=== PATIENT | female | born 1980 | race Caucasian/White ===

== ENCOUNTER → 2016-06-09 | Outpatient (CLI) | payer OTHER ==
[2014-05-23 13:08] VITALS: BP 129/68
[~2016-06-09] MED LIST: CYCL10TA2 PO; GADOBUTROL 10 MMOL/10 ML VIAL IV ONE; HYDR1TAB12 PO; IBUP-1060 PO; PHEN37.53 PO
--- NOTE | 2016-06-09 13:25 | KCIC ---
PROCEDURE MRI of the cervical spine without and with contrast 06/09/2016 HISTORY Left arm numbness with new numbness across the region of both scapula. History of previous cervical spine surgery. TECHNIQUE Unenhanced T1 weighted, T2 weighted and inversion recovery sagittal and gradient echo, T2 weighted and T1 weighted axial images of the cervical spine were obtained. After the intravenous administration of 10 cc of Gadavist, enhanced T1 weighted sagittal and axial images of the cervical spine were obtained. FINDINGS Comparison study is dated 12/22/2015. Magnetic susceptibility artifact related to cervical disc replacement surgery is seen at C5-6. Degenerative signal changes and loss of height are seen involving the C4-5 and C6-7 discs. The marrow signal of the visualized bony structures is within normal limits. The cervical spinal cord is normal in position and signal characteristics. No area of abnormal contrast enhancement is seen. At the C2-3 and C3-4 disc spaces there are minimal to mild generalized disc bulges. Degenerative changes are seen involving the uncovertebral and facet joints. These findings do not result in significant central spinal canal or neural foraminal stenosis. At the C4-5 disc space there is a mild generalized disc bulge. Degenerative changes are seen involving the uncovertebral and facet joints bilaterally. These findings do not result in significant central spinal canal or neural foraminal stenosis. The C5-6 disc space is very difficult to evaluate due to magnetic susceptibility artifact related to the patient's disc replacement. Posterior vertebral body osteophyte formation is seen. Degenerative changes are seen involving the uncovertebral and facet joints, right greater than left. These findings appear to efface the anterior CSF resulting in mild right greater than left central spinal canal stenosis without significant cord impingement. No neural foraminal stenosis is seen. At the C6-7 disc space there is a mild generalized disc bulge. Degenerative changes are seen involving the uncovertebral and facet joints, right greater than left. These findings do not result in significant central spinal canal or neural foraminal stenosis. At the C7-T1 disc space there is a minimal generalized disc bulge. Degenerative changes are seen involving the facet joints bilaterally. These findings do not result in significant central spinal canal or neural foraminal stenosis. IMPRESSION 1. The patient is status post cervical disc replacement at C5-6. Magnetic susceptibility artifact at this level limits evaluation of C5-6 as outlined above. 2. Degenerative changes are seen involving the cervical spine. These findings appear to result in mild right greater than left central spinal canal stenosis at C5-6 without significant cord impingement. No neural foraminal stenosis is seen. Electronically signed by: Roddy Hayes MD (Jun 09, 2016 13:23:57)
== END | disposition home or self-care (01) ==
LOC: KCIC MRI 10:58
PROVIDERS: ATTEND Neurological Surgery
DX: M50.20 Other cervical disc displacement, unspecified cervical region (principal)
CPT/HCPCS: 72156; A9585

== ENCOUNTER → 2017-03-23 | Outpatient (CLI) | payer OTHER ==
[2014-05-23 13:08] VITALS: BP 129/68
[~2017-03-23] MED LIST changes: -GADOBUTROL 10 MMOL/10 ML VIAL IV ONE
[2017-03-26 22:10] LABS: HSV 1&2 IGM <0.91 Ratio (0.00-0.90)
== END | disposition home or self-care (01) ==
LOC: LAB 11:11
PROVIDERS: ATTEND Family Medicine
DX: B00.9 Herpesviral infection, unspecified (principal)
CPT/HCPCS: 36415; 87529

== ENCOUNTER → 2017-12-12 | Outpatient (CLI) | payer OTHER ==
[2014-05-23 13:08] VITALS: BP 129/68
--- NOTE | 2017-12-12 13:19 | KCIC ---
EXAM: Maxillofacial bone CT without contrast. HISTORY: Sinusitis. TECHNIQUE: Computed tomographic images of the maxillofacial bones were obtained without contrast. *One or more of the following individualized dose reduction techniques were utilized for this examination: 1. Automated exposure control. 2. Adjustment of the mA and/or kV according to patient size. 3. Use of iterative reconstruction technique. COMPARISON: None. FINDINGS: There is severe bilateral ethmoid and maxillary, moderate right sphenoid and mild bilateral frontal sinus mucosal thickening. There is paranasal sinus wall thickening due to the sequela of chronic sinusitis. There are bilateral antrostomy/uncinectomy changes. There is rightward nasal septal deviation. The orbits are unremarkable. No suspicious calvarial lesion is seen. The brain is unremarkable. The mastoid air cells are clear. IMPRESSION: 1. Chronic severe ethmoid and maxillary, moderate sphenoid and mild frontal sinus disease with associated sinus wall thickening. 2. Bilateral antrostomy/uncinectomy changes. Electronically signed by: Silvia Steiner MD (12/12/2017 1:16 PM) [place] [id number]
== END | disposition home or self-care (01) ==
LOC: KCIC CT 12:35
PROVIDERS: ATTEND Otolaryngology
DX: J32.4 Chronic pansinusitis (principal); J34.2 Deviated nasal septum; K21.9 Gastro-esophageal reflux disease without esophagitis
CPT/HCPCS: 70486

== ENCOUNTER 2018-02-07 10:33 | Day surgery (SDC) | payer OTHER ==
[~2018-02-07] VITALS: Ht 172.7 cm; Wt 104.3 kg
[~2018-02-07 10:33] MED LIST changes: +EPINEPHrine VIAL 30 MG/30 ML VIAL ONE; +LIDOCAINE 1% PF 2 ML VIAL. ID PRN; +LIDOCAINE 1%/EPI 1:100,000 20 ML VIAL. ONE; +LIDOCAINE 2% PF Vial for OR 5 ML VIAL. ONE; +MUPIROCIN 2 % NASAL OINTMENT 22GM TUBE. ONE; +ONDANSETRON PF 4 MG/2 ML VIAL. IV PRN; +OXYMETAZOLINE 0.05% NASAL SPRAY 30ML BOTTLE. NS ONE; +PHENYLEPHRINE 0.25% NASAL SPRAY 15ML BOTTLE. NS ONE; +PROCHLORPERAZINE 10 MG/2 ML VIAL. IV PRN; +PROPOFOL 20 ML IV ONE; +ROCURONIUM 50 MG/5 ML VIAL. ONE; +SUCCINYLCHOLINE 200 MG/10 ML VIAL. ONE; +fentaNYL PF VIAL 100 MCG/2 ML VIAL IV PRN; +fentaNYL PF VIAL 100 MCG/2 ML VIAL ONE
[2018-02-07] MEDS ORDERED: CETI10TA22 PO (10:53)
[2018-02-07] MEDS ORDERED: FLUT9.9S NS (10:53)
[2018-02-07] MEDS ORDERED: SCOPOLAMINE 1.5MG PATCH. TD ONE (11:15)
[2018-02-07] MEDS: IV RINGERS,LACTATED 1000ML 1,000 ML IV SCH ×2 (11:22→14:35)
[2018-02-07 11:23] LABS: U PREG PATIENT NEGATIVE (NEG)
[2018-02-07] MEDS ORDERED: CLINDAMYCIN 900MG PREMIX 50 ML IV ONE (11:31)
[2018-02-07] MEDS ORDERED: DESFLURANE > 120 MINUTES IH ONE (12:11)
[2018-02-07] MEDS ORDERED: FAMOTIDINE 20 MG/2 ML VIAL ONE ×2 (12:11→12:45)
[2018-02-07] MEDS ORDERED: DEXAMETHASONE SOD PHOS 20 MG/5 ML VIAL. ONE (12:11)
[2018-02-07] MEDS ORDERED: ONDANSETRON PF 4 MG/2 ML VIAL. ONE (12:45)
[2018-02-07] MEDS ORDERED: diphenhydrAMINE 50 MG/ML VIAL ONE (12:46)
[2018-02-07] MEDS: fentaNYL PF VIAL 100 MCG/2 ML VIAL IV PRN ×2 (14:34→14:51)
[2018-02-07] MEDS ORDERED: oxyCODONE/APAP 5/325 1 TAB TABLET ONE (15:07)
--- NOTE | 2018-02-07 15:09 | PDOC4 ---
IMMEDIATE POST OP NOTE Date: Feb 07, 2018 Pre-Op Diagnosis nasal polyposis, chronic pansinusitis, bilateral inferior turbinate hypertrophy Post-Op Diagnosis Same As Above Procedure Performed bilateral revision functional endoscopic sinus surgery under image guidance navigation to include bilateral medial maxillary antrostomy, bilateral total ethmoidectomy, bilateral sphenoidotomy, bilateral frontal sinusotomy; bilateral inferior turbinoplasty Surgeon Dr. Sonja Beyer Income Tax Return Preparer none Anesthesiologist Dr. Frances Anesthesia Type: General Blood Loss 100mL Specimens Obtained right ethmoid contents culture, left nasal cavity polyps, left frontal polyps, right ethmoid contents Findings 1. Nasal septum is straight 2. Bilateral inferior turbinate hypertrophy 3. Severe purulent discharge, mucoid discharge filling bilateral ethmoid, sphenoid, frontal sinuses with surrounding severe polypoid inflammation 4. Evidence of previous surgery. Both maxillary antrostomies still very narrow. Residual suprabullar ethmoid air cell along skull base narrowing frontal outflow tracts. Right sphenoid sinus not previously opened. Complications none Operative Note Dictation #[id number] SONJA BEYER MD Feb 07, 2018 15:09
[2018-02-07] MEDS ORDERED: oxyCODONE/APAP 5/325 1 TAB TABLET PO ONE (15:15)
[2018-02-07] MEDS ORDERED: OXYC-323 PO (15:15)
[2018-02-07] MEDS ORDERED: PRED20TA PO (15:16)
[2018-02-07] MEDS ORDERED: CLAR500T PO (15:17)
[2018-02-07] MEDS ORDERED: ONDA4TAB7 PO (15:18)
[2018-02-07 15:30] VITALS: BP 113/75
--- NOTE | 2018-02-07 18:32 | OP ---
DATE OF SURGERY: 02/07/2018 PREOPERATIVE DIAGNOSES: Nasal polyposis, chronic pansinusitis and bilateral inferior turbinate hypertrophy. POSTOPERATIVE DIAGNOSES: Nasal polyposis, chronic pansinusitis and bilateral inferior turbinate hypertrophy. PROCEDURE PERFORMED: Bilateral revision functional endoscopic sinus surgery under image guidance navigation to include bilateral medial maxillary antrostomy, bilateral total ethmoidectomy, bilateral sphenoidotomy, bilateral frontal sinusotomy and bilateral inferior turbinoplasty. SURGEON: Sonja Beyer MD ANESTHESIA: General endotracheal anesthesia. ANESTHESIOLOGIST: Noah Frances MD. ESTIMATED BLOOD LOSS: 100 mL. INDICATIONS FOR SURGERY: The patient is a 37-year-old female with a history of chronic pansinusitis and nasal polyposis. The patient has undergone previous sinus surgery several years ago and has had continued recurrent disease that is refractory to medical management. The decision was made the patient to undergo the above procedure after risks, benefits, and alternatives of surgery were thoroughly discussed with the patient and informed consent was obtained. INTRAOPERATIVE SPECIMENS OBTAINED: Right ethmoid sinus contents were sent for culture. For pathology, we sent left nasal cavity polyps, left frontal sinus polyps and right ethmoid contents. INTRAOPERATIVE FINDINGS: 1. Nasal septum was found to be relatively straight. 2. Bilateral inferior turbinate hypertrophy. 3. Severe polypoid inflammation filling the ethmoid, frontal and sphenoid sinuses and partially filling the maxillary antrostomy. There was thick purulent and mucoid discharge also surrounding the polyps, especially noted almost eosinophilic mucin present within the right ethmoid region that was cultured. 4. Evidence of previous sinus surgery. The patient had previous evidence of maxillary antrostomies, although these were narrowed now. There was also evidence of previous ethmoidectomy, but there was residual suprabullar ethmoid air cells along the skull base that was narrowing the frontal outflow tracts bilaterally and the right sphenoid sinus had not been previously operated or opened. DESCRIPTION OF THE PROCEDURE: The patient was brought back to the room per anesthesia and intubated in the standard fashion. The patient was then turned 90 degrees in the room. Her nasal vestibular hairs were trimmed and a submucosal injection of 1% lidocaine with 1:100,000 epinephrine was placed along the anterior septum and Afrin-soaked pledgets were inserted in the nasal cavity. The patient was then prepped and draped in standard fashion. The Medisse image guidance system was set up and verified for accuracy. This was used throughout the case to ensure complete dissection and to ensure patient safety. The Afrin-soaked pledgets were then removed. A 0-degree scope was used to visualize the patient's left nasal cavity. The patient was found to have evidence of severe polypoid inflammation emanating from the middle meatus on this side. The septum was not deviated enough to require a septoplasty. I injected the attachment of the middle turbinate at the lateral nasal wall with 1% lidocaine with 1:100,000 epinephrine. I then used a Blakesley forceps to take a biopsy of the polyps. The microdebrider was then used to further excise the polyps from the middle meatus and the ethmoid sinuses that had been previously operated on. I continued my dissection posteriorly removing a significant amount of polypoid inflammation from the ethmoid sinuses and traveling posteriorly to the sphenoid sinus, which had also been previously opened. There was severe polypoid inflammation filling all of the sinuses and I ensured my complete dissection removing the excess mucosa superiorly to the skull base and laterally to the lamina papyracea. Using a 30-degree scope, I then visualized the previous maxillary antrostomy. This had been severely narrowed and the backbiter forceps were used anteriorly and along the floor of the maxillary antrostomy to widen this maxillary antrostomy widely. I also then used the 30-degree scope to visualize the frontal sinus outflow tract. There was significant polypoid inflammation emanating from the frontal sinus outflow tract. The microdebrider was used to widen this. There was a suprabullar ethmoid air cell posteriorly present and this was resected using a curved Ajax forceps to widen the frontal sinus outflow tract. Severe polyp inflammation was emanating from the frontal sinus outflow tract and this was biopsied using giraffe forceps. I then used normal saline in a 60 mL syringe to do a powered irrigation of the frontal sinus outflow tract as there was thick mucoid discharge filling this region. I did multiple powered irrigations of the frontal sinus, the ethmoid sinuses, sphenoid sinus and maxillary sinus on this side and this was thoroughly irrigated until there was no evidence of infection present. Topical epinephrine was then placed for several minutes for hemostasis. Propel contour implant was placed within the frontal sinus outflow tract and the Propel standard implant was placed within the posterior ethmoid air cells to help postoperative polyp recurrence from happening. My attention was then taken to the right nasal cavity. In a similar fashion, I used a 0 degree scope to visualize the nasal cavity. The patient had evidence of previous resection of the anterior aspect of the middle turbinate and I injected the lateral nasal wall with 1% lidocaine with 1:100,000 epinephrine. The middle meatus had thick purulent discharge as well as polypoid inflammation and I took a culture of this thick purulent discharge for culture later in the case. The microdebrider was then used to completely excise the purulent discharge and crusting as well as to start reexcising the polyps that were filling the anterior ethmoid air cells. I continued my dissection posteriorly through the ethmoid air cells as well until I came to the face of the sphenoid. At the face of sphenoid, it was noted on image guidance that this had not been previously opened. I found the attachment in the inferior aspect of the middle turbinate, it had been resected previously. I immediately identified the natural outflow tract of the sphenoid sinus. I used suction to enter into the sphenoid ostia. I then used a sphenoid punch to widen the sphenoid ostia followed by Ajax forceps to further widen the sphenoid ostia superiorly to the skull base and laterally to the lamina papyracea. I then used the microdebrider to trim the mucosa and the polypoid mucosa that was filling the sphenoid sinus as well as the ethmoid air cells along the skull base. I then used a 30-degree scope to visualize the frontal sinus outflow tract, which was also continued to have a significant polypoid inflammation. The polyps were debrided conservatively using the microdebrider. There was again noted to be a suprabullar ethmoid air cell that was narrowing the frontal sinus outflow tract from its posterior aspect. This was resected using sharp dissection until the frontal sinus outflow tract was widely patent. Again, I used 30-degree scope to visualize the maxillary antrostomy. This has also been narrowed from a previous surgery and was widened using backbiter forceps. I then again did a powered irrigation of the frontal, ethmoid, sphenoid and maxillary antrostomies using normal saline until there was no evidence of residual infection of this area. Topical epinephrine was placed for several minutes for hemostasis. Propel contour implant was placed within the frontal sinus outflow tract and a Propel standard implant was placed within the posterior ethmoid air cell. I then performed a bilateral inferior turbinoplasty being on the left side. I used the microdebrider to cut into the anterior aspect of the inferior turbinate and performed a submucosal resection along the anterior and inferior turbinate mucosa. I then trimmed the excess mucosa along the entire length of the inferior turbinate along its lateral and inferior border as well as resecting the posterior mulberry tissue. Suction [place]ora was used to elevate the residual mucosa of the most inferior portion of the turbinate bone and I did a very conservative resection of the most inferior portion of the turbinate bone using Aman-Cut forceps. The residual mucosa was then trimmed and redraped the residual turbinate bone. The residual turbinate bone was outfractured. Suction Bovie electrocautery was used posteriorly along the incision line anterior for hemostasis. After this was completed, the nasal airway was widely patent. An identical procedure was done on the left side and again until bilateral nasal cavity was widely patent. A piece of silicone sheeting was placed along the anterior septum extending posterior between the middle turbinate and lateral nasal wall. It did extend between the high residual middle turbinate on the right side. This was sutured to the anterior septum using 3-0 Prolene suture. The nasal cavity was then thoroughly aspirated. The patient was turned back over to anesthesia and extubated without complication. Our sponge and instrument counts were correct at the end of the case. COMPLICATIONS: None. DISPOSITION: Stable and transferred to the recovery room. SONJA BEYER MD DR: ALLEN/jeri JOB#: [id number] / [id number] REGINA
[2018-02-08] MEDS ORDERED: CLINDAMYCIN 900MG PREMIX 50 ML IV PRN (06:00)
--- NOTE | 2018-02-11 15:07 | PATHOLOGY ---
[facility] Accession Number: [id number] . 01 Material submitted: . PART A: LEFT NASAL CAVITY POLYP PART B: RIGHT ETHMOID CONTENTS PART C: LEFT FRONTAL POLYP . 01 Clinical history: . Chronic sinusitis . 02 Diagnosis: A. Segment of respiratory mucosa, left nasal cavity polyp: - Inflammatory nasal polyp showing chronic inflammation with eosinophils. . B. Right ethmoid contents: - Inspissated mucous containing numerous eosinophils and focally admixed mucin producing epithelial cells. . C. Segment of respiratory mucosa, left frontal polyp: - Inflammatory polyp showing chronic inflammation with eosinophils. (JPM:chun; 02/11/2018) QMS/02/11/2018 . 02 Electronically signed: . Rhett Khan MD, Pathologist NPI- [id number] . 01 Gross description: . A. Received in formalin labeled "Mumtaz Sandoval, left nasal cavity polyp," is a polypoid segment of pale brambila soft tissue measuring 0.7 x 0.5 x 0.4 cm in greatest dimensions. The surgical margin is inked, and the specimen is bisected and submitted entirely in cassette A1. . B. Received in formalin labeled "Mumtaz Sandoval, right ethmoid contents," is an irregular, polypoid segment of brambila-brown soft tissue measuring 1.4 x 0.8 x 0.4 cm in greatest dimensions. The surgical margin is inked, and the specimen is bisected and submitted entirely in cassette B1. . C. Received in formalin labeled "Mumtaz Sandoval, L frontal polyp," is a polypoid segment of pale brambila soft tissue measuring 0.4 x 0.3 x 0.2 cm in greatest dimensions. The surgical margin is inked, and the specimen is submitted entirely in cassette C1. ([facility]; 02/08/2018) XDC/XDC . 02 Microscopic: . . . 02 Pathologist provided ICD-10: J32.9, J33.9 . 02 CPT . 625990, 928360, [id number] Specimen Comment: A courtesy copy of this report has been sent to Specimen Comment: [phone], . Specimen Comment: Report sent to / DR COKER Performed at: 01 [facility] [address] [facility] [address], [place] [id number] MD Sam Coelho MD Phone: [phone] Performed at: 02 [facility] [address] [place], [place] [id number] MD Rhett Khan MD Phone: [phone]
== END 2018-02-07 16:05 | disposition home or self-care (01) ==
LOC: SURG 10:33
PROVIDERS: ATTEND Otolaryngology
DX: J32.4 Chronic pansinusitis (principal); J33.8 Other polyp of sinus; J34.3 Hypertrophy of nasal turbinates; Z79.2 Long term (current) use of antibiotics; Z79.899 Other long term (current) drug therapy; Z72.89 Other problems related to lifestyle; Z87.891 Personal history of nicotine dependence; Z98.890 Other specified postprocedural states; G43.909 Migraine, unspecified, not intractable, without status migrainosus; Z91.048 Other nonmedicinal substance allergy status; Z88.5 Allergy status to narcotic agent; Z88.0 Allergy status to penicillin
CPT/HCPCS: 30140; 31256; 31257; 31276; 81025; 87071; 87075; 87102; A7015; C1713; J0171; J0330; J1100; J1200; J2001; J2405; J2704; J3010; J3490; J7120; 88304; 88305

== ENCOUNTER → 2020-10-15 | Outpatient (CLI) | payer OTHER ==
[~2020-10-15] MED LIST changes: +CETI10TA74 PO; +CLAR-7 PO; -EPINEPHrine VIAL 30 MG/30 ML VIAL ONE; +FLUT9.9S NS; -HYDR1TAB12 PO; +HYDR1TAB13 PO; -LIDOCAINE 1% PF 2 ML VIAL. ID PRN; -LIDOCAINE 1%/EPI 1:100,000 20 ML VIAL. ONE; -LIDOCAINE 2% PF Vial for OR 5 ML VIAL. ONE; -MUPIROCIN 2 % NASAL OINTMENT 22GM TUBE. ONE; +ONDA4TAB7 PO; -ONDANSETRON PF 4 MG/2 ML VIAL. IV PRN; +OXYC1TAB15 PO; -OXYMETAZOLINE 0.05% NASAL SPRAY 30ML BOTTLE. NS ONE; -PHENYLEPHRINE 0.25% NASAL SPRAY 15ML BOTTLE. NS ONE; +PRED20TA PO; -PROCHLORPERAZINE 10 MG/2 ML VIAL. IV PRN; -PROPOFOL 20 ML IV ONE; -ROCURONIUM 50 MG/5 ML VIAL. ONE; -SUCCINYLCHOLINE 200 MG/10 ML VIAL. ONE; -fentaNYL PF VIAL 100 MCG/2 ML VIAL IV PRN; -fentaNYL PF VIAL 100 MCG/2 ML VIAL ONE
--- NOTE | 2020-10-15 14:57 | KCIC ---
EXAM: XR RT WRIST 3VIEWS 10/15/2020 2:29 PM CLINICAL INDICATION: Right wrist pain for one and half weeks, pain radial side COMPARISON: None TECHNIQUE: 3 views of the right wrist FINDINGS: No acute fracture. Alignment is normal. Joint spaces are maintained. No focal soft tissue abnormality. IMPRESSION: No acute osseous abnormality. Electronically signed by: Aleyda Little MD (10/15/2020 2:54 PM) [id number]
== END ==
LOC: KCIC 14:26
PROVIDERS: ATTEND Nurse Practitioner Family
DX: M25.531 Pain in right wrist (principal)
CPT/HCPCS: 73110

== ENCOUNTER → 2020-11-05 | Outpatient (CLI) | payer OTHER ==
[2020-11-05 08:14] LABS: BASO # 0.1 x10^3/uL (0.0-0.2); BASO % 1 % (0-3); EOS # 0.2 x10^3/uL (0.0-0.7); EOS % 3 % (0-3); HEMATOCRIT 40.7 % (36.0-47.0); HEMOGLOBIN 13.8 g/dL (12.0-15.5); LYMPH # 1.8 x10^3/uL (1.0-4.8); LYMPH % 25 % (24-48); MEAN CORPUSCULAR HEMOGLOBIN 31 pg (25-35); MEAN CORPUSCULAR HGB CONC 34 g/dL (31-37); MEAN CORPUSCULAR VOLUME 93 fL (79-100); MONO # 0.5 x10^3/uL (0.0-1.1); MONO % 7 % (0-9); NEUT # 4.7 x10^3/uL (1.8-7.7); NEUT % 64 % (31-73); PLATELET COUNT 217 x10^3/uL (140-400); RED BLOOD COUNT 4.38 x10^6/uL (3.50-5.40); RED CELL DISTRIBUTION WIDTH 13.9 % (11.5-14.5); WHITE BLOOD COUNT 7.3 x10^3/uL (4.0-11.0)
[2020-11-05 08:30] LABS: ALBUMIN 3.8 g/dL (3.4-5.0); ALBUMIN/GLOBULIN RATIO 1.1 (1.0-1.7); CALCIUM 9.1 mg/dL (8.5-10.1); GFR 61.4; POTASSIUM 5.1 mmol/L (3.5-5.1); TOTAL BILIRUBIN 0.6 mg/dL (0.2-1.0); TOTAL PROTEIN 7.3 g/dL (6.4-8.2)
[2020-11-05 08:44] LABS: FREE T4 1.02 ng/dL (0.76-1.46); THYROID STIM HORMONE (TSH) 2.298 uIU/mL (0.358-3.74)
== END ==
LOC: LAB 07:35
PROVIDERS: ATTEND Nurse Practitioner Gerontology
DX: R63.8 Other symptoms and signs concerning food and fluid intake (principal); R53.83 Other fatigue
CPT/HCPCS: 36415; 80053; 82306; 84439; 84443; 85025

== ENCOUNTER → 2021-06-06 | Outpatient (CLI) | payer OTHER ==
[~2021-06-06] MED LIST changes: +CYCL10TA19 PO; -CYCL10TA2 PO
[2021-06-06 11:43] LABS: BASO % 1 % (0-3); EOS # 0.2 x10^3/uL (0.0-0.7); EOS % 3 % (0-3); HEMATOCRIT 40.1 % (36.0-47.0); HEMOGLOBIN 13.3 g/dL (12.0-15.5); LYMPH # 2.1 x10^3/uL (1.0-4.8); LYMPH % 34 % (24-48); MEAN CORPUSCULAR HEMOGLOBIN 30 pg (25-35); MEAN CORPUSCULAR HGB CONC 33 g/dL (31-37); MEAN CORPUSCULAR VOLUME 92 fL (79-100); MONO # 0.3 x10^3/uL (0.0-1.1); MONO % 5 % (0-9); NEUT # 3.6 x10^3/uL (1.8-7.7); NEUT % 57 % (31-73); PLATELET COUNT 203 x10^3/uL (140-400); RED BLOOD COUNT 4.36 x10^6/uL (3.50-5.40); RED CELL DISTRIBUTION WIDTH 13.8 % (11.5-14.5); WHITE BLOOD COUNT 6.2 x10^3/uL (4.0-11.0)
[2021-06-06 11:59] LABS: ALBUMIN 3.7 g/dL (3.4-5.0); ALBUMIN/GLOBULIN RATIO 1.2 (1.0-1.7); C-REACTIVE PROTEIN 1.5 mg/L (0-3.3); CALCIUM 7.7 mg/dL (8.5-10.1); CREATININE 0.8 mg/dL (0.6-1.0); POTASSIUM 4.2 mmol/L (3.5-5.1); TOTAL BILIRUBIN 0.3 mg/dL (0.2-1.0); TOTAL PROTEIN 6.9 g/dL (6.4-8.2)
[2021-06-07 22:09] LABS: ANA INTERP Positive (.)
== END ==
LOC: LAB 11:18
PROVIDERS: ATTEND Nurse Practitioner Family
DX: R21 Rash and other nonspecific skin eruption (principal)
CPT/HCPCS: 36415; 80053; 85025; 85651; 86038; 86140

== ENCOUNTER → 2021-07-19 | Outpatient (CLI) | payer OTHER ==
[2021-07-19 08:27] LABS: BACTERIA,URINE FEW /HPF (0-FEW); RBC,URINE 0 /HPF (0-2)
[2021-07-19 08:31] LABS: CREATININE,RANDOM URINE 91.9 mg/dL (Not Establ.)
[2021-07-20 20:09] LABS: ANA INTERP Negative (.)
== END ==
LOC: LAB 07:12
PROVIDERS: ATTEND Nurse Practitioner Family
DX: R23.2 Flushing (principal); R51.9 Headache, unspecified; R76.8 Other specified abnormal immunological findings in serum; M79.641 Pain in right hand
CPT/HCPCS: 36415; 81001; 82570; 84156; 86038